=== PATIENT | female | born 1955 | race Caucasian/White ===

== ENCOUNTER 2023-01-25 04:32 | Observation (INO) ==
[2023-01-25 05:33] LABS: Basophils # (auto) 0.05 K/uL (0.00-0.20); Basophils % (auto) 0.4 %; Eosinophils # (auto) 0.06 K/uL (0.00-0.50); Eosinophils % (auto) 0.5 %; Hematocrit (blood only) 41.4 % (37.0-47.0); Hemoglobin 14.7 g/dl (12.0-16.0); Immature Granulocytes # (auto) 0.03 K/uL (0.01-0.20); Immature Granulocytes % (auto) 0.3 %; Mean Corpuscular Hemoglobin 30.7 pg (25.0-34.0); Mean Corpuscular Hgb Conc 35.5 g/dL (32.0-36.0); Mean Corpuscular Volume 86.4 fL (80.0-100.0); Mean Platelet Volume 8.7 fL (9.4-12.4); Monocytes # (auto) 0.77 K/uL (0.11-0.59); Monocytes % (auto) 6.7 %; Neutrophils % (auto) 78.1 %; Platelet Count 233 K/uL (130-400); RDW Coefficient of Variation 12.6 % (11.5-14.5); RDW Standard Deviation 39.8 fL (36.4-46.3); Red Blood Count 4.79 M/uL (4.20-5.40); White Blood Count 11.41 K/ul (4.8-10.8)
[2023-01-25 05:43] LABS: Albumin Globulin Ratio 1.6 (0.9-2); Albumin Level 4.2 gm/dl (3.4-5.0); BUN Creatinine Ratio 35.3 (10-20); Bilirubin,Total 1.3 mg/dl (0.2-1.0); Calcium 9.3 mg/dl (8.6-10.3); Creatinine Clr Calc Pharmacy 66.9 ml/min; Est GFR (African American) 83.3 ml/min; Est GFR (Non-African American) 71.9 ml/min; Globulin 2.6 gm/dl (2.5-4.0); Potassium 4.2 mmol/L (3.5-5.1); Total Protein 6.8 gm/dl (6.0-8.3)
[2023-01-25 06:07] LABS: Influenza A virus by PCR Negative (Neg); Influenza B virus by PCR Negative (Neg); RSV by PCR Negative (Neg); SARS CoV2 RNA(COVID-19) Ceph NEGATIVE (Negative)
[2023-01-25 06:12] LABS: Partial Thromboplastin Ratio 0.9; Partial Thromboplastin Time 26.4 Seconds (21.0-31.0); Prothrombin Time 11.1 Seconds (9.0-12.0)
[2023-01-25 06:29] LABS: Troponin I High Sensitivity 97.9 pg/ml (0-14)
[2023-01-25] MEDS ORDERED: FUROSEMIDE 40 MG/4 ML VIAL IV ONE (06:36)
[2023-01-25] MEDS ORDERED: ASPIRIN CHEW 324 MG PO STA (06:36)
[2023-01-25] MEDS ORDERED: AZITHROMYCIN 500 MG in DEXTROSE 5% 250 ML IV ONE (06:36)
[2023-01-25] MEDS ORDERED: cefTRIAXone SODIUM 2,000 MG/50 ML BAG IV STA (06:36)
--- NOTE | 2023-01-25 06:43 | Emergency Department Note ---
History of Present Illness General Chief complaint: Shortness of Breath/Dyspnea Stated complaint: SOB, CHEST PAIN, NAUSEA SINCE 2 PM YESTERDAY Time Seen by Provider: 01/25/23 06:27 History of Present Illness Maximum Pain Intensity: 4 67-year-old female presents emergency department with 1 day history of substernal chest pressure that was nonradiating that started around 2 PM yesterday after she started initially with a migraine. Patient states that the pain lasted for prolonged period of time it did not radiate to the arm back jaw or neck. Patient denies any cough. Reportedly family had had a cold last week. Patient states some shortness of breath. Patient states dyspnea on exertion. Patient denies hemoptysis denies productive cough at this time. Patient denies leg pain or leg swelling. Patient was concerned due to chest pressure and shortness of breath. There are no other mitigating or alleviating factors. Currently at 6:30 AM on my evaluation the patient states no current chest pain Home Medications Medication Instructions Recorded Confirmed Type ascorbic acid (vitamin C) 500 mg 500 mg PO DAILY #30 tabs 10/11/18 11/05/22 Rx tablet calcium-magnesium 300 mg-300 mg 1 tab PO DAILY 10/11/18 11/05/22 History tablet cholecalciferol (vitamin D3) 50 2,000 units PO DAILY #30 tabs 10/11/18 11/05/22 Rx mcg (2,000 unit) tablet multivitamin (Daily Multi-Vitamin 1 tab PO DAILY 10/11/18 11/05/22 History tablet) hydroxyzine HCl 25 mg tablet 25 mg PO HS PRN itching #90 tabs 10/16/22 11/05/22 Rx tramadol 50 mg tablet 50 mg PO DAILY PRN pain #30 tabs 01/24/23 Rx Allergies Allergy/AdvReac Type Severity Reaction Status Date / Time Benzodiazepines Allergy Mild psychological Verified 11/05/22 14:31 effects NSAIDS (Non-Steroidal Allergy Mild Rash Verified 11/05/22 14:31 Anti-Inflamma Sulfa (Sulfonamide Allergy Mild Rash Verified 11/05/22 14:31 Antibiotics) Past Med/Surg History Medical History H/O Mohs micrographic surgery for skin cancer (~2015) Insomnia Low back pain chronic Mitral regurgitation Mitral valve prolapse Surgical History H/O sinus surgery "cranial incision for sinus infection" - 1972 also May 2020 Hx of colonoscopy Family History Sister Depression Mother Diabetes Hypertension Myocardial infarction Hearing loss Father Kidney disease Cancer Hearing loss Other No family history of allergies No family history of bleeding disorder Denies family history of Ovarian cancer Prostate cancer Heart disease Breast cancer Colorectal cancer Stroke Asthma Social History Smoking Status: Never smoker Second Hand Exposure: No; Do You Dip or Chew Tobacco: No; Hx Alcohol Use: Yes Alcohol Intake Frequency: 2-3 x/Week Hx Substance Use: No Preferred Language: Georgian Communication Ability: Effective Cathode Maker Required: No Beliefs That Will Affect Care: None marital status: Current Living Situation: Spouse current occupational status: employed current occupation: [employer] How many Children do You have: 0 Feels Safe at Home: Yes Childhood Exposure to Second-Hand Smoke: No Diet: regular caffeine: Yes Dental Care, Regularly: Yes Physical Activity Frequency: Daily Physical Activity Frequency Comment: Walking Seatbelt Use: always Sunscreen Use: No Assistive Devices: Glasses Review of Systems A total of 10 systems reviewed and were otherwise negative Respiratory: + dyspnea Cardiovascular: + chest pain Physical Exam Vital Signs Vital Signs - 24 hr 01/25/23 04:36 01/25/23 05:18 01/25/23 05:18 Temperature 36.0 C L Temperature Source Temporal Artery Scan Pulse Rate 109 H Pulse Rate [Right Finger] Pulse Rate from SpO2 Sensor Pulse Rhythm Pulse Rhythm [Right Finger] Pulse Strength [Right Finger] Respiratory Rate 18 Respiratory Effort / Characteristics Non-Labored Spontaneous Respiratory Depth Respiratory Pattern Blood Pressure 94/62 L Blood Pressure [Right Arm] Blood Pressure Mean 72 Blood Pressure Mean [Right Arm] Pulse Oximetry 92 92 Oxygen Delivery Method Room Air Room Air Sepsis Recent Fever Within 48 Hours No Sepsis New/Unexplained Change in Mental Status No Sepsis Action Taken by Nursing No Action Required 01/25/23 05:23 01/25/23 05:18 01/25/23 05:18 Temperature Temperature Source Pulse Rate 92 H 88 88 Pulse Rate [Right Finger] Pulse Rate from SpO2 Sensor 89 Pulse Rhythm Regular Pulse Rhythm [Right Finger] Pulse Strength [Right Finger] Respiratory Rate 16 12 Respiratory Effort / Characteristics Respiratory Depth Respiratory Pattern Blood Pressure Blood Pressure [Right Arm] Blood Pressure Mean Blood Pressure Mean [Right Arm] Pulse Oximetry 92 91 Oxygen Delivery Method Room Air Sepsis Recent Fever Within 48 Hours Sepsis New/Unexplained Change in Mental Status Sepsis Action Taken by Nursing 01/25/23 05:20 01/25/23 05:30 01/25/23 05:40 Temperature Temperature Source Pulse Rate 86 91 H 91 H Pulse Rate [Right Finger] Pulse Rate from SpO2 Sensor 87 91 H 91 H Pulse Rhythm Pulse Rhythm [Right Finger] Pulse Strength [Right Finger] Respiratory Rate 12 20 18 Respiratory Effort / Characteristics Respiratory Depth Respiratory Pattern Blood Pressure Blood Pressure [Right Arm] Blood Pressure Mean Blood Pressure Mean [Right Arm] Pulse Oximetry 91 89 L 91 Oxygen Delivery Method Sepsis Recent Fever Within 48 Hours Sepsis New/Unexplained Change in Mental Status Sepsis Action Taken by Nursing 01/25/23 05:50 01/25/23 06:07 01/25/23 07:20 Temperature 36.8 C Temperature Source Oral Pulse Rate 90 Pulse Rate [Right Finger] 90 92 H Pulse Rate from SpO2 Sensor 92 H Pulse Rhythm Pulse Rhythm [Right Finger] Regular Pulse Strength [Right Finger] Normal Respiratory Rate 26 H 15 18 Respiratory Effort / Characteristics Non-Labored Spontaneous Respiratory Depth Normal Respiratory Pattern Regular Blood Pressure 97/70 L Blood Pressure [Right Arm] 97/70 L 95/75 L Blood Pressure Mean 79 Blood Pressure Mean [Right Arm] 79 81 Pulse Oximetry 88 L 90 93 Oxygen Delivery Method Room Air Sepsis Recent Fever Within 48 Hours Sepsis New/Unexplained Change in Mental Status Sepsis Action Taken by Nursing GENERAL: Patient is awake alert in no acute distress patient is resting comfortably and showing no signs of anxiety EYES: The conjunctivae are clear. The pupils are round and reactive. EARS, NOSE, MOUTH AND THROAT: The nose is without any evidence of any deformity. Mucous membranes are moist. Tongue is midline. NECK: The neck is nontender and supple. RESPIRATORY: Normal respiratory effort is noted there is no evidence of wheezing rhonchi or rales CARDIOVASCULAR: Regular rate and rhythm noted there no murmurs rubs or gallops normal S1 normal S2. GASTROINTESTINAL: The abdomen is soft. Abdomen is nontender. PELVIS: The Pelvis is stable. No tenderness to palpation is noted. BACK: No midline tenderness or or step-off noted range of motion in flexion exte nsion as well as rotation no signs of muscle spasm noted MUSCULOSKELETAL/EXTREMITIES: There is no evidence of gross deformity full range of motion is noted in the hips and shoulders. SKIN: There is no obvious evidence of any rash. There are no petechiae, pallor or cyanosis noted. NEUROLOGIC: Patient is awake alert and oriented x3 strength is symmetric patellar reflexes are 2+ bilaterally Course Reevaluation(s) Reevaluation #1: Patient was started on aspirin, Lasix, antibiotics, oxygen. Patient has no current chest pain or significant shortness of breath Time: 07:30 Consultations Consultation #1: Case was discussed with the [facility]ist for admission Time: 07:30 Administered Medications Azithromycin 500 mg/ Dextrose 255 mls @ 125 mls/hr IV ONE ONE Stop: 01/25/23 08:38 Last Admin: 01/25/23 07:49 Dose: 125 mls/hr Documented By: MEENU Discontinued Medications Aspirin (Aspirin Chew 324 Mg) 324 mg PO NOW STA Stop: 01/25/23 06:37 Last Admin: 01/25/23 07:01 Dose: 324 mg Documented By: EDISON Furosemide (Furosemide 40 Mg/4 Ml Vial) 40 mg IV ONE ONE Stop: 01/25/23 06:37 Last Admin: 01/25/23 07:02 Dose: 40 mg Documented By: EDISON Ceftriaxone Sodium (Rocephin) 2,000 mg in 50 mls @ 100 mls/hr IV NOW STA Stop: 01/25/23 07:05 Last Infusion: 01/25/23 07:58 Dose: 0 mls/hr Documented By: Admin: 01/25/23 07:00 Dose: 100 mls/hr Documented By: EDISON Critical Care Time Critical Care Time: Yes Total Critical Care Time: 35 I have personally spent greater than 35 minutes of critical care time in the direct management of this patient. This includes bedside care, interpretation of diagnostic studies, and testing, discussion with consultants, patient, and family members, and other required patient management activities. These minutes are in excess of all separately billable procedures. Medical Decision Making Medical Records Attestation: I reviewed the patient's medical records. Home Medications Current Medication List: was personally reviewed by me Laboratory Data Attestation: I reviewed the patient's lab results. Lab results interpreted by me patient has an elevated troponin, mildly elevated white blood cell count 10/27/23 05:13 01/25/23 05:13 Lab Results 01/25/23 01/25/23 01/25/23 Range/Units 05:13 05:13 05:13 WBC 11.41 H (4.8-10.8) K/ul RBC 4.79 (4.20-5.40) M/uL Hgb 14.7 (12.0-16.0) g/dl Hct 41.4 (37.0-47.0) % MCV 86.4 (80.0-100.0) fL MCH 30.7 (25.0-34.0) pg MCHC 35.5 (32.0-36.0) g/dL RDW Std Deviation 39.8 (36.4-46.3) fL RDW Coeff of [place] 12.6 (11.5-14.5) % Plt Count 233 (130-400) K/uL MPV 8.7 L (9.4-12.4) fL Immature Gran % (Auto) 0.3 % Neut % (Auto) 78.1 % Lymph % (Auto) 14.0 % [place] % (Auto) 6.7 % Eos % (Auto) 0.5 % Baso % (Auto) 0.4 % Neut # (Auto) 8.90 H (1.40-6.50) K/uL Lymph # (Auto) 1.60 (1.20-3.40) K/uL [place] # (Auto) 0.77 H (0.11-0.59) K/uL Eos # (Auto) 0.06 (0.00-0.50) K/uL Baso # (Auto) 0.05 (0.00-0.20) K/uL Immature Gran # (Auto) 0.03 (0.01-0.20) K/uL PT (9.0-12.0) Seconds INR (0.9-1.1) APTT (21.0-31.0) Seconds PTT Ratio Sodium 135 L (136-145) mmol/L Potassium 4.2 (3.5-5.1) mmol/L Chloride 104 (98-107) mmol/L Carbon Dioxide 22 (21-32) mmol/L Anion Gap 9 (3-11) BUN 30 H (6-23) mg/dl Creatinine 0.85 (0.6-1.2) mg/dl Est Cr Clr Drug Dosing 66.9 ml/min Est GFR ( Amer) 83.3 ml/min Est GFR (Non-Af Amer) 71.9 ml/min BUN/Creatinine Ratio 35.3 H (10-20) Glucose 149 H (70-99(Fasting)) mg/dl Calcium 9.3 (8.6-10.3) mg/dl Magnesium (1.7-2.4) mg/dl Total Bilirubin 1.3 H (0.2-1.0) mg/dl AST 23 (13-39) U/L ALT 23 (7-52) U/L Alkaline Phosphatase 75 (34-104) U/L Troponin I High Sens 97.9 H* (0-14) pg/ml Total Protein 6.8 (6.0-8.3) gm/dl Albumin 4.2 (3.4-5.0) gm/dl Globulin 2.6 (2.5-4.0) gm/dl Albumin/Globulin Ratio 1.6 (0.9-2) SARS-CoV-2 (PCR) NEGATIVE (Negative) Influenza Type A (PCR) Negative (Neg) Influenza Type B (PCR) Negative (Neg) RSV (RT-PCR) Negative (Neg) 01/25/23 01/25/23 Range/Units 05:13 07:36 WBC (4.8-10.8) K/ul RBC (4.20-5.40) M/uL Hgb (12.0-16.0) g/dl Hct (37.0-47.0) % MCV (80.0-100.0) fL MCH (25.0-34.0) pg MCHC (32.0-36.0) g/dL RDW Std Deviation (36.4-46.3) fL RDW Coeff of [place] (11.5-14.5) % Plt Count (130-400) K/uL MPV (9.4-12.4) fL Immature Gran % (Auto) % Neut % (Auto) % Lymph % (Auto) % [place] % (Auto) % Eos % (Auto) % Baso % (Auto) % Neut # (Auto) (1.40-6.50) K/uL Lymph # (Auto) (1.20-3.40) K/uL [place] # (Auto) (0.11-0.59) K/uL Eos # (Auto) (0.00-0.50) K/uL Baso # (Auto) (0.00-0.20) K/uL Immature Gran # (Auto) (0.01-0.20) K/uL PT 11.1 (9.0-12.0) Seconds INR 1.0 (0.9-1.1) APTT 26.4 (21.0-31.0) Seconds PTT Ratio 0.9 Sodium (136-145) mmol/L Potassium (3.5-5.1) mmol/L Chloride (98-107) mmol/L Carbon Dioxide (21-32) mmol/L Anion Gap (3-11) BUN (6-23) mg/dl Creatinine (0.6-1.2) mg/dl Est Cr Clr Drug Dosing ml/min Est GFR ( Amer) ml/min Est GFR (Non-Af Amer) ml/min BUN/Creatinine Ratio (10-20) Glucose (70-99(Fasting)) mg/dl Calcium (8.6-10.3) mg/dl Magnesium 1.9 (1.7-2.4) mg/dl Total Bilirubin (0.2-1.0) mg/dl AST (13-39) U/L ALT (7-52) U/L Alkaline Phosphatase (34-104) U/L Troponin I High Sens (0-14) pg/ml Total Protein (6.0-8.3) gm/dl Albumin (3.4-5.0) gm/dl Globulin (2.5-4.0) gm/dl Albumin/Globulin Ratio (0.9-2) SARS-CoV-2 (PCR) (Negative) Influenza Type A (PCR) (Neg) Influenza Type B (PCR) (Neg) RSV (RT-PCR) (Neg) Imaging Data Attestation: I personally reviewed and interpreted this imaging study as follows: My Impression: Chest x-ray interpreted by me CHF versus right lower lobe infiltrate Radiologist's Impression: Chest X-Ray 01/25/23 04:53 XR chest 1V portable CLINICAL HISTORY: Dyspnea. COMPARISON STUDY: No previous studies for comparison. FINDINGS: There is no pneumothorax. There are small bilateral pleural effusions. Moderate interstitial thickening is present. There are hazy bibasilar opacities. Cardiac size is at normal. IMPRESSION: Interstitial thickening consistent with pulmonary edema. Small bilateral pleural effusions with hazy bibasilar opacities. Radiographic follow- up to ensure resolution is recommended. ACT 112: Negative or not required by law. Electronically signed by: [place] Romeo M.D. 01/25/2023 6:56 AM ECG Data Attestation: I personally reviewed and interpreted this ECG as follows: Additional Comments: EKG interpreted by me normal sinus rhythm nonspecific ST-T change no obvious ST segment elevation or depression rate of 96, normal axis normal intervals Telemetry the patient has a rate of 96 as interpreted by me MDM Narrative Medical decision making differential diagnosis includes angina, unstable angina, acute coronary syndrome, acute MN, CHF, pneumonia, COVID, upper respiratory tract infection, anemia, cardiac dysrhythmia Patient had a cardiac evaluation started prior to my arrival to the patient's room. Patient has an elevated troponin and nonspecific ST-T change EKG and a picture of CHF on chest x-ray. Patient was started on aspirin, Lasix and empiric antibiotics. Blood cultures were obtained. A BNP was added. Patient is hypoxic has had 88% room air pulse ox but is in no respiratory distress and was started on 2 L of oxygen. Patient will be admitted for further evaluation of ACS and CHF I did review a primary care visit of September 2022 regarding the patient having stable MVP and insomnia Heart score is a 5 Patient currently has no chest pain, the case was discussed with the [facility] hospitalist for admission Impression & Plan Acute non-ST elevation myocardial infarction (NSTEMI), CHF (congestive heart failure), Hypoxia Discharge Plan Visit Data Chief Complaint: Shortness of Breath/Dyspnea Stated Complaint: SOB, CHEST PAIN, NAUSEA SINCE 2 PM YESTERDAY ED Provider: Chao Middleton Discharge Problem: Acute non-ST elevation myocardial infarction (NSTEMI), CHF (congestive heart failure), Hypoxia Patient Disposition: Admitted As Inpatient Forms Stand Alone Forms: [facility] Prescriptions Prescriptions: No Action hydroxyzine HCl 25 mg tablet 25 mg PO HS PRN (Reason: itching) Qty: 90 0RF tramadol 50 mg tablet 50 mg PO DAILY PRN (Reason: pain) Qty: 30 0RF Rx Instructions: PDMP searched, okay to fill calcium-magnesium 300-300 mg tablet 1 tab PO DAILY multivitamin [Daily Multi-Vitamin] tablet 1 tab PO DAILY ascorbic acid (vitamin C) 500 mg tablet 500 mg PO DAILY Qty: 30 0RF cholecalciferol (vitamin D3) 2,000 unit tablet 2,000 units PO DAILY Qty: 30 0RF Referrals Referrals: Linn Osuna MD [Primary Care Provider] -
--- NOTE | 2023-01-25 06:58 | XRay Report ---
XR chest 1V portable CLINICAL HISTORY: Dyspnea. COMPARISON STUDY: No previous studies for comparison. FINDINGS: There is no pneumothorax. There are small bilateral pleural effusions. Moderate interstitia l thickening is present. There are hazy bibasilar opacities. Cardiac size is at normal. IMPRESSION: Interstitial thickening consistent with pulmonary edema. Small bilateral pleural effusio ns with hazy bibasilar opacities. Radiographic follow-up to ensure resolution is recommended. ACT 112: Negative or not required by law. Electronically signed by: [place] Romeo M.D. 01/25/2023 6:56 AM
--- NOTE | 2023-01-25 07:40 | History & Physical Report ---
Date of Service January 25, 2023 Assessment & Plan (1) Chest pain: Plan: Patient presents with unstable angina, acute heart failure, unknown EF at the time of admission but previously with preserved EF and moderate MR Troponin elevated at 97 on arrival and 2 hours later up to 127, BNP elevated at 733 Chest x-ray with pulmonary edema and small bilateral pleural effusions ECG with T wave changes in leads III and aVF -Admit to PCU -Trend serial troponin, check echocardiogram given MR and significant murmur on examination -Consult cardiology for further evaluation -Will likely need ischemic evaluation after heart failure exacerbation treated (2) Acute non-ST elevation myocardial infarction (NSTEMI): Plan: Troponin elevation as above with some nonspecific T wave changes in inferior leads on ECG along with chest pain with exertion Start baby aspirin daily Check lipid panel, consider statin Will need ischemic evaluation in the future (3) CHF (congestive heart failure): Plan: With elevated BNP, pulmonary edema and pleural effusions, crackles, orthopnea, dyspnea on exertion With a history of moderate MR on echo from 2021, here with 3/6 holosystolic murmur With recent viral illness-could have viral cardiomyopathy Check respiratory viral panel bio fire Check echocardiogram Consult cardiology Received 1 dose of IV Lasix and had some hypotension into the 80s systolic-hold further Lasix at this time Supplemental O2 as needed keep pulse ox greater than 92% Keep electrolytes replete-give 1 g IV magnesium (4) Hypoxia: Plan: Secondary to CHF Supplemental O2 and wean off as able to (5) Mitral regurgitation: Plan: As noted above Checking echocardiogram (6) Insomnia: Plan: Continue hydroxyzine as needed for sleep and tramadol as needed for chronic lower back pain Plan Disposition-admit to PCU Full code History of Present Illness Chief Complaint: Chest pain, shortness of breath Primary Care Provider: Linn Osuna MD This patient is a 67-year-old female with a history of mitral valve prolapse and regurgitation, and insomnia who presents to the ER with substernal chest pain and shortness of breath that started yesterday afternoon. She had cold symptoms last week to include sinus congestion and mild cough, but no fevers or chills and has since recovered. Her had a worse cold than she did. She reports intermittent substernal chest pressure and associated dyspnea anytime she walked around that was relieved with rest. No weight gain or leg swelling, no abd bloating.She does report putting salt on a lot of her food ever since she lost her sense of taste with having COVID a couple years ago. She reports her chest pain was also coming on all through the night especially with lying flat, at worst was a 6/10. Currently is present at a 1/10 but feeling a little better since receiving IV lasix in ER. In the ER, pulse ox 88% on room air and she was placed on 2 L nasal cannula. Her troponin was elevated at 97. ECG showed T wave flattening in aVF and some T wave inversion in 3-nonspecific T wave abnormality in inferior leads. Chest x- ray was clearly consistent with pulmonary edema and small bilateral pleural effusions with hazy bibasilar opacities. She was given IV Lasix as well as antibiotics in case of community-acquired pneumonia. She will be admitted for further cardiac evaluation for NSTEMI, CHF, less likely pneumonia. Allergies Allergy/AdvReac Type Severity Reaction Status Date / Time Benzodiazepines Allergy Mild psychological Verified 11/05/22 14:31 effects NSAIDS (Non-Steroidal Allergy Mild Rash Verified 11/05/22 14:31 Anti-Inflamma Sulfa (Sulfonamide Allergy Mild Rash Verified 11/05/22 14:31 Antibiotics) Home Medications Medication Instructions Recorded Confirmed Type ascorbic acid (vitamin C) 500 mg 500 mg PO DAILY #30 tabs 10/11/18 01/25/23 Rx tablet calcium-magnesium 300 mg-300 mg 1 tab PO DAILY 10/11/18 01/25/23 History tablet cholecalciferol (vitamin D3) 50 2,000 units PO DAILY #30 tabs 10/11/18 01/25/23 Rx mcg (2,000 unit) tablet multivitamin (Daily Multi-Vitamin 1 tab PO DAILY 10/11/18 01/25/23 History tablet) hydroxyzine HCl 25 mg tablet 25 mg PO HS PRN itching #90 tabs 10/16/22 01/25/23 Rx tramadol 50 mg tablet 50 mg PO DAILY PRN pain #30 tabs 01/24/23 01/25/23 Rx aspirin 81 mg tablet,delayed 81 mg PO QAM #30 tabs 01/25/23 Rx release fluticasone propionate 50 1 spray intranasal DAILY 01/25/23 01/25/23 History mcg/actuation nasal spray,suspension Past Med/Surg History Medical History H/O Mohs micrographic surgery for skin cancer (~2016) Insomnia Low back pain chronic Mitral regurgitation Mitral valve prolapse Surgical History H/O sinus surgery "cranial incision for sinus infection" - 1972 also May 2020 Hx of colonoscopy Family History Sister Depression Mother Diabetes Hypertension Myocardial infarction Hearing loss Father Kidney disease Cancer Hearing loss Other No family history of allergies No family history of bleeding disorder Denies family history of Ovarian cancer Prostate cancer Heart disease Breast cancer Colorectal cancer Stroke Asthma Social History Smoking Status: Never smoker Second Hand Exposure: No; Do You Dip or Chew Tobacco: No; Hx Alcohol Use: No Hx Substance Use: No Preferred Language: Ecuadorean Communication Ability: Effective Engine Hostler Required: No Beliefs That Will Affect Care: None marital status: Current Living Situation: Family current occupational status: employed current occupation: [employer] How many Children do You have: 0 Feels Safe at Home: Yes Safety Concerns: Feels Safe At This Time Childhood Exposure to Second-Hand Smoke: No Diet: regular caffeine: Yes Dental Care, Regularly: Yes Physical Activity Frequency: Daily Physical Activity Frequency Comment: Walking Seatbelt Use: always Sunscreen Use: No Assistive Devices: None Review of Systems Review of Systems: All systems reviewed & are unremarkable except as noted in HPI & below Physical Exam Constitutional: WD/WN, vitals as above Eyes: PERRL, conjunctivae normal, anicteric sclerae ENMT: external ear and nose normal, oropharynx normal Neck: trachea midline, no thyromegaly Respiratory: normal respiratory effort; no cough Auscultation: + crackles (Bibasilar); no wheezes Cardiovascular: Rate/Rhythm: regular rate and regular rhythm Heart Sounds: + murmur (3/6 holosystolic murmur heard best at apex and radiating to axilla) Vessels: + JVD and dorsalis pedis pulses present Extremities: no edema Chest (Breasts): Chest: normal inspection of chest Gastrointestinal (Abdomen): normal bowel sounds, soft, nontender, no hepatosplenomegaly Musculoskeletal: Extremities: extremities normal to inspection; no cyanosis and no clubbing Skin: no rashes, warm and dry Neurologic: moves all extremities and awake; no focal motor deficits Psychiatric: A+Ox3, euthymic affect Lymphatic: no lymphedema Results & Data Results & Data Vital Signs (Past 12 Hours) Vital Signs Temp Pulse Pulse Resp BP BP Pulse Ox 01/25/23 07:20 92 H 18 95/75 L 93 01/25/23 06:07 36.8 C 90 15 97/70 L 90 01/25/23 05:50 90 26 H 97/70 L 88 L 01/25/23 05:40 91 H 18 91 01/25/23 05:30 91 H 20 89 L 01/25/23 05:20 86 12 91 01/25/23 05:18 88 12 91 01/25/23 05:18 88 01/25/23 05:23 92 H 16 92 01/25/23 05:18 92 01/25/23 04:36 36.0 C L 109 H 18 94/62 L 92 O2 Del Method 01/25/23 07:20 01/25/23 06:07 Room Air 01/25/23 05:50 01/25/23 05:40 01/25/23 05:30 01/25/23 05:20 01/25/23 05:18 01/25/23 05:18 01/25/23 05:23 Room Air 01/25/23 05:18 Room Air 01/25/23 04:36 Room Air Laboratory Results CBC, PT/INR, PTT, CMP, troponin reviewed COVID/influenza/RSV reviewed and negative Diagnostic Findings Chest x-ray image personally reviewed by me and consistent with pulmonary edema, small bilateral pleural effusions-CHF ECG Additional Comments: As per HPI Code Status & VTE Plan Code Status Full code VTE Prophylaxis Plan VTE Prophylaxis will be ordered: Yes PG Care Time/CCT Total # of Minutes Spent Total Time Spent with Patient: Total time spent is greater than 50% in coordination of care (as documented) at patient's floor/unit and/or counseling patient: Coding Level of Care Code 84534 INT INP/OBS CARE 3/75MIN Diagnoses Chest pain R07.9 Acute non-ST elevation myocardial infarction (NSTEMI) I21.4 CHF (congestive heart failure) I50.9 Hypoxia R09.02 Mitral regurgitation I34.0 Cardiac valve disease etiology: nonrheumatic Insomnia G47.00 (5) Mitral regurgitation Cardiac valve disease etiology: nonrheumatic Qualified Code(s): I34.0 - Nonrheumatic mitral (valve) insufficiency
[2023-01-25 08:09] LABS: Magnesium 1.9 mg/dl (1.7-2.4)
[2023-01-25 08:13] LABS: Appearance Urine Cloudy (Clear); Bacteria Urine Automated Negative (Negative); Bilirubin Urine Negative (Negative); Blood Urine Negative (Negative); Color Urine Yellow; Glucose Urine UA Negative (Negative); Ketones Urine Negative (Negative); Leukocyte Esterase Urine Negative (Negative); Nitrite Urine Negative (Negative); Protein Urine Negative (Negative); RBC Urine Automated 0-4 /hpf (0-4); Specific Gravity Urine 1.017 (1.000-1.030); Urobilinogen Urine Negative (Negative)
[2023-01-25 08:18] LABS: Troponin I High Sensitivity 122.2 pg/ml (0-14)
[2023-01-25 08:26] LABS: Thyroid Stimulating Hormone 4.626 uIu/ml (0.300-4.500)
[2023-01-25 09:03] LABS: T4 Free Thyroxine 1.02 ng/dl (0.61-1.60)
[2023-01-25] MEDS ORDERED: MAGNESIUM SULFATE / D5W 1 GM/100 ML BAG IV ONE (09:08)
[2023-01-25] MEDS ORDERED: MoRPHine SULFATE 2 MG/ML CARP IV PRN (11:49)
[2023-01-25] MEDS ORDERED: NITROGLYCERIN SL 0.4 MG/TAB TAB SL PRN (11:49)
[2023-01-25] MEDS ORDERED: traMADol HCL 50 MG TABLET PO PRN (11:49)
[2023-01-25] MEDS ORDERED: POLYETHYLENE (MIRALAX) 17 GM PACK PO PRN (11:49)
[2023-01-25] MEDS ORDERED: ACETAMINOPHEN 325 MG TAB PO PRN (11:49)
[2023-01-25] MEDS ORDERED: hydrOXYzine HCl 25 MG TAB PO PRN (11:49)
[2023-01-25] MEDS ORDERED: ONDANSETRON INJ 2 MG/ML 2 ML VIAL IV PRN (11:49)
[2023-01-25 12:27] LABS: Adenovirus PCR Not Detected (NotDetected); Bordetella parapertussis PCR Not Detected (NotDetected); Bordetella pertussis PCR Not Detected (NotDetected); Chlamydia pneumoniae PCR Not Detected (NotDetected); Coronavirus 229E PCR Not Detected (NotDetected); Coronavirus CoV-2 (COVID19)PCR Not Detected (NotDetected); Coronavirus HKU1 PCR Not Detected (NotDetected); Coronavirus NL63 PCR Not Detected (NotDetected); Coronavirus OC43PCR Not Detected (NotDetected); Human Metapneumovirus PCR Not Detected (NotDetected); Influenza A PCR Not Detected (NotDetected); Influenza B PCR Not Detected (NotDetected); Mycoplasma pneumoniae PCR Not Detected (NotDetected); Parainfluenza Virus 1 PCR Not Detected (NotDetected); Parainfluenza Virus 2 PCR Not Detected (NotDetected); Parainfluenza Virus 3 PCR Not Detected (NotDetected); Parainfluenza Virus 4 PCR Not Detected (NotDetected); Respiratory Syncytial VirusPCR Not Detected (NotDetected); Rhinovirus/Enterovirus PCR Not Detected (NotDetected)
[2023-01-25] MEDS ORDERED: OPTIRAY 320 500ml IV ONE (12:47)
--- NOTE | 2023-01-25 13:02 | CT Scan Report ---
CT ANGIOGRAPHY OF THE CHEST, PULMONARY EMBOLUS PROTOCOL CLINICAL HISTORY: Dyspnea. COMPARISON STUDY: Chest radiograph performed earlier today. TECHNIQUE: Following IV administration of 111 mL of Optiray, helical axial images of the chest were o btained utilizing the pulmonary embolus protocol. Maximal intensity projections and sagittal and cor onal reformats were viewed on an independent 3D workstation. IV contrast was administered without co mplication. Automated exposure control was utilized for the study. A dose lowering technique was ut ilized adhering to the principles of ALARA. CT DOSE: 746.73 mGy.cm FINDINGS: No pulmonary emboli are identified. There is moderate cardiomegaly. No pericardial effusio n is present. Calcification within or adjacent to the mitral valve is noted. There is no pneumothorax . There are small bilateral pleural effusions. Interlobular septal thickening is noted. This has prog ressed since chest radiograph performed earlier today. Scattered alveolar opacities within the lungs are present. Central airways are patent. A water attenuation lateral segment hepatic lesion favors a cyst. IMPRESSION: 1. No pulmonary emboli identified. 2. Progression of interstitial and alveolar pulmonary edema since chest radiograph performed earlier today. Small bilateral pleural effusions. 3. Moderate cardiomegaly. ACT 112: Negative or not required by law. Electronically signed by: Chico Romeo M.D. 01/25/2023 1:01 PM
--- NOTE | 2023-01-25 15:19 | Discharge Summary ---
Discharge Summary Date of Service January 25, 2023 Notes For Next Care Provider Transferred urgently to [facility] for CT surgery evaluation for acute MR Admission HPI Per Admitting Provider This patient is a 67-year-old female with a history of mitral valve prolapse and regurgitation, and insomnia who presents to the ER with substernal chest pain and shortness of breath that started yesterday afternoon. She had cold symptoms last week to include sinus congestion and mild cough, but no fevers or chills and has since recovered. Her had a worse cold than she did. She reports intermittent substernal chest pressure and associated dyspnea anytime she walked around that was relieved with rest. No weight gain or leg swelling, no abd bloating.She does report putting salt on a lot of her food ever since she lost her sense of taste with having COVID a couple years ago. She reports her chest pain was also coming on all through the night especially with lying flat, at worst was a 6/10. Currently is present at a 1/10 but feeling a little better since receiving IV lasix in ER. In the ER, pulse ox 88% on room air and she was placed on 2 L nasal cannula. Her troponin was elevated at 97. ECG showed T wave flattening in aVF and some T wave inversion in 3-nonspecific T wave abnormality in inferior leads. Chest x- ray was clearly consistent with pulmonary edema and small bilateral pleural effusions with hazy bibasilar opacities. She was given IV Lasix as well as antibiotics in case of community-acquired pneumonia. She will be admitted for further cardiac evaluation for NSTEMI, CHF, less likely pneumonia. Principal Dx & Hospital Course #1 = Principal Diagnosis (1) CHF (congestive heart failure): With elevated BNP, pulmonary edema and pleural effusions, crackles, orthopnea, dyspnea on exertion With a history of moderate MR on echo from 2021, here with 3/6 holosystolic murmur With recent viral illness-could have viral cardiomyopathy but viral respiratory panel checked and negative. Also with acute MR likely cause as below Echocardiogram here with preserved EF, severe pulmonary hypertension, and severe MR likely acute Consult cardiology greatly appreciated-plan for transfer to cardiology at [facility] for CT surgery evaluation Received 1 dose of IV Lasix and had some hypotension into the 80s systolic-hold further Lasix at this time Supplemental O2 as needed keep pulse ox greater than 92% Keep electrolytes replete-gave 1 g IV magnesium Keep n.p.o. (2) Chest pain: Patient presents with unstable angina, acute heart failure, unknown EF at the time of admission but previously with preserved EF and moderate MR Troponin elevated at 97 on arrival and 2 hours later up to 122, then stable at 115, BNP elevated at 733 Chest x-ray with pulmonary edema and small bilateral pleural effusions ECG with T wave changes in leads III and aVF Echocardiogram with severe MR as above, possible acute MR Transferring to [facility] (3) Mitral regurgitation: As noted above (4) Acute non-ST elevation myocardial infarction (NSTEMI): Troponin elevation as above with some nonspecific T wave changes in inferior leads on ECG along with chest pain with exertion Start baby aspirin daily Check lipid panel, consider statin Will need ischemic evaluation in the future (5) Hypoxia: Secondary to CHF Supplemental O2 and wean off as able to (6) Insomnia: Continue hydroxyzine as needed for sleep and tramadol as needed for chronic lower back pain Plan Disposition-Transfer to [facility] for CT surgery evaluation for likely acute MR Full code Discharge Exam Constitutional WD/WN, vitals as above Eyes PERRL, conjunctivae normal, anicteric sclerae ENMT external ear and nose normal, oropharynx normal Neck trachea midline, no thyromegaly Respiratory normal respiratory effort; no cough Auscultation: + crackles (Bibasilar); no wheezes Cardiovascular Rate/Rhythm: regular rate and regular rhythm Heart Sounds: + murmur (3/6 holosystolic murmur heard best at apex and radiating to axilla) Vessels: + JVD and dorsalis pedis pulses present Extremities: no edema Chest (Breasts) Chest: normal inspection of chest Gastrointestinal (Abdomen) normal bowel sounds, soft, nontender, no hepatosplenomegaly Musculoskeletal Extremities: extremities normal to inspection; no cyanosis and no clubbing Skin no rashes, warm and dry Neurologic moves all extremities and awake; no focal motor deficits Psychiatric A+Ox3, euthymic affect Lymphatic no lymphedema Updated Medication List Medication Instructions Recorded Confirmed Type ascorbic acid (vitamin C) 500 mg 500 mg PO DAILY #30 tabs 10/11/18 01/25/23 Rx tablet calcium-magnesium 300 mg-300 mg 1 tab PO DAILY 10/11/18 01/25/23 History tablet cholecalciferol (vitamin D3) 50 2,000 units PO DAILY #30 tabs 10/11/18 01/25/23 Rx mcg (2,000 unit) tablet multivitamin (Daily Multi-Vitamin 1 tab PO DAILY 10/11/18 01/25/23 History tablet) hydroxyzine HCl 25 mg tablet 25 mg PO HS PRN itching #90 tabs 10/16/22 01/25/23 Rx tramadol 50 mg tablet 50 mg PO DAILY PRN pain #30 tabs 01/24/23 01/25/23 Rx aspirin 81 mg tablet,delayed 81 mg PO QAM #30 tabs 01/25/23 Rx release fluticasone propionate 50 1 spray intranasal DAILY 01/25/23 01/25/23 History mcg/actuation nasal spray,suspension Hospital Stay Data Consultations 01/25/23 07:22 ED Decision to Admit Stat 01/25/23 11:02 Consult Cardiology Routine Diagnostic Imagining Performed 01/25/23 12:18 CT angio chest PE protocol Stat Pending Results Patient Have Any Pending Studies at Discharge: Yes (Blood cultures) Discharge Instructions Given to Patient (Per Discharging Provider) transferred urgently to [facility] Total Time Total Time Spent Total Time Spent (In Minutes): 90 minutes Total Time Includes: Examination of the Patient, Discharge Planning, Medication Reconciliation and Communication With Other Providers (Cardiology) Coding Level of Care Code 06062 INP/OBS DISCH >30 MIN Diagnoses CHF (congestive heart failure) I50.9 Chest pain R07.9 Mitral regurgitation I34.0 Cardiac valve disease etiology: nonrheumatic Acute non-ST elevation myocardial infarction (NSTEMI) I21.4 Hypoxia R09.02 Insomnia G47.00
--- NOTE | 2023-01-25 15:30 | Cardiology Consultation ---
Date of Consultation January 25, 2023 Assessment & Plan (1) Acute mitral regurgitation: (2) Chest pain: (3) Mitral valve prolapse: (4) Pulmonary hypertension: (5) Tricuspid regurgitation: (6) Hypoxia: Plan ASSESSMENT/PLAN: 1. Acute mitral regurgitation: Presentation concerning for acute severe mitral regurgitation. Hypoxic with mild tachycardia and mild hypotension with Rales on exam but otherwise does not appear to be hypervolemic intravascularly. Labs suggest azotemia and she has not responded to Lasix 40 mg IV x1. Echo suggests severe mitral regurgitation with mitral valve prolapse and possible flail/partially flail posterior mitral leaflet. Most recent blood pressure low normal. Recommend urgent transfer to [facility] to be evaluated for mitral valve corrective surgery. Contacted Dr. Pittman of CT surgery at [facility] and also discussed with Dr. Hoffman of cardiology at [facility]. They have agreed to accept her in transfer. Will not delay transfer with transesophageal echo or cardiac catheterization. 2. Mitral valve prolapse: Myxomatous mitral valve. Has done well for years until acute change on 01/24/2023 and now concern for severe mitral regurgitation as above. 3. Elevated troponin: Has ongoing chest discomfort but no wall motion abnorma lities on echo to suggest MA and only low-level troponin elevation, which is likely related to her mitral valve process. No PE on CT scan. Transfer as above. 4. Pulmonary hypertension: Severe pulmonary hypertension suggested on preliminary echo review. Formal review to follow. Likely related to her mitral valve process. CTA of the chest with reportedly no pulmonary embolism, but rather worsening pulmonary edema from chest x-ray earlier in the day. CT surgery to evaluate for mitral valve corrective surgery. 5. Tricuspid regurgitation: Appeared significant on preliminary echo review. Anticipate transesophageal echo as well at [facility] and may require surgical repair. 6. Hypoxia: Likely due to mitral regurgitation. She does not appear hypervolemic on exam and has not responded to Lasix. Oxygen saturation is acceptable with supplemental oxygen thus far. 7. Disposition: Patient care discussed with CT surgery and cardiology at [facility]. Appreciate their assistance. Patient care discussed with Dr. James of the primary hospitalist service. Recommend transfer to [facility] for CT surgery evaluation. Recommendations discussed in detail with patient at the bedside. Offered to call her but she states that she has already updated him. Any questions were answered to the best of my ability. Highly complex medical issues. 55 minutes of critical care time spent managing patient, coordinating care, discussing with multiple providers as noted above, reviewing records, and completing documentation. Thank you for allowing me to participate in the care of your patient. Please c all for any other questions or concerns. Sincerely, Issac William M.D. History of Present Illness Reason for Consultation: CHF, elevated troponin, chest pain Requesting Physician: Alyssa James MD Attending Physician: Alyssa James MD History of Present Illness Mrs. Gold is a very pleasant 67-year-old female with a history significant for mitral valve prolapse with nonsevere regurgitation. She formally has been seen by Dr. Jones in the cardiology office on 07/28/2021. Her last echo was on 06/27/2021 which described normal LV systolic function and mild to moderate mitral regurgitation. She presented to the emergency department and was admitted on 01/25/2023 with chest pain, shortness of breath and hypoxia. She was hypotensive on presentation with systolic pressures in the 80s to 90s and heart rates in the 90s to low 100s for the most part. She has been at her baseline other than some mild URI symptoms a few weeks ago after her had similar symptoms. She recently went to the beach and did well there from a cardiovascular standpoint. Then acutely at approximately 2 PM on 01/24/2023, she developed chest pain and shortness of breath. It is a substernal chest discomfort and mostly dyspnea on exertion however symptoms would improve if she sat down. Symptoms persisted throughout the night however including orthopnea. She has had lightheadedness, specifically on exertion up stairs. She has not noted any weight gain nor edema. She checks her blood pressure occasionally at home and her heart rate is typically in the 60s or 70s. She has not checked her blood pressure or heart rate in approximately 1 or 2 weeks. When she arrived, she was hypoxic with oxygen saturation in the upper 80s per report on room air. She was placed on nasal cannula and her oxygen saturation on 2 L has been low 90s percent. She was given Lasix 40 mg IV x1 in the emergency department. She has not noted any significant urine output. Chest pain has been minimal and persistent. Her high-sensitivity troponin was 97 on presentation, trended to 122 and then trended downward at 115, despite ongoing discomfort. She denies melena, hematochezia, hematuria, or other bleeding. Review of systems: As above. Review of systems otherwise negative/unremarkable. Family history: Mother and maternal grandmother had CAD. Social history: She denies tobacco, alcohol, or drug abuse. She lives at home with her . No children. 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 She was unaccompanied. Allergies Allergy/AdvReac Type Severity Reaction Status Date / Time Benzodiazepines Allergy Mild psychological Verified 11/05/22 14:31 effects NSAIDS (Non-Steroidal Allergy Mild Rash Verified 11/05/22 14:31 Anti-Inflamma Sulfa (Sulfonamide Allergy Mild Rash Verified 11/05/22 14:31 Antibiotics) Home Medications Medication Instructions Recorded Confirmed Type ascorbic acid (vitamin C) 500 mg 500 mg PO DAILY #30 tabs 10/11/18 01/25/23 Rx tablet calcium-magnesium 300 mg-300 mg 1 tab PO DAILY 10/11/18 01/25/23 History tablet cholecalciferol (vitamin D3) 50 2,000 units PO DAILY #30 tabs 10/11/18 01/25/23 Rx mcg (2,000 unit) tablet multivitamin (Daily Multi-Vitamin 1 tab PO DAILY 10/11/18 01/25/23 History tablet) hydroxyzine HCl 25 mg tablet 25 mg PO HS PRN itching #90 tabs 10/16/22 01/25/23 Rx tramadol 50 mg tablet 50 mg PO DAILY PRN pain #30 tabs 01/24/23 01/25/23 Rx aspirin 81 mg tablet,delayed 81 mg PO QAM #30 tabs 01/25/23 Rx release fluticasone propionate 50 1 spray intranasal DAILY 01/25/23 01/25/23 History mcg/actuation nasal spray,suspension Patient History Medical History H/O Mohs micrographic surgery for skin cancer (~2015) Insomnia Low back pain chronic Mitral regurgitation Mitral valve prolapse Surgical History H/O sinus surgery "cranial incision for sinus infection" - 1972 also May 2020 Hx of colonoscopy Family History Sister Depression Mother Diabetes Hypertension Myocardial infarction Hearing loss Father Kidney disease Cancer Hearing loss Other No family history of allergies No family history of bleeding disorder Denies family history of Ovarian cancer Prostate cancer Heart disease Breast cancer Colorectal cancer Stroke Asthma Social History Smoking Status: Never smoker Second Hand Exposure: No; Do You Dip or Chew Tobacco: No; Hx Alcohol Use: No Hx Substance Use: No Preferred Language: Malagasy Communication Ability: Effective [employer] Required: No Beliefs That Will Affect Care: None marital status: Current Living Situation: Family current occupational status: employed current occupation: Acupuncture How many Children do You have: 0 Feels Safe at Home: Yes Safety Concerns: Feels Safe At This Time Childhood Exposure to Second-Hand Smoke: No Diet: regular caffeine: Yes Dental Care, Regularly: Yes Physical Activity Frequency: Daily Physical Activity Frequency Comment: Walking Seatbelt Use: always Sunscreen Use: No Assistive Devices: None Physical Exam Physical Exam: Gen.: No acute distress. Alert and oriented. HEENT: Anicteric sclera. Neck: No significant JVD. Perhaps mild hepatojugular reflux. Bilateral carotid bruit versus radiation of cardiac murmur. Normal carotid upstrokes bilaterally. Cardiac: No ventricular heave. Regular and tachycardic in the low 100s. Normal S1-S2. 3/6 systolic murmur heard throughout but most prominent at the apex and radiates to the axilla. Pulmonary: Bibasilar Rales. Abdomen: Soft, nontender, nondistended, with normoactive bowel sounds. No bruits noted. Extremities: 2+ radial pulses bilaterally. 2+ posterior tibialis pulses bilaterally. No edema or cyanosis. Psychiatric: Affect appears appropriate. Results & Data Vital Signs (Past 12 Hours) Vital Signs Temp Pulse Pulse Resp BP BP Pulse Ox 01/25/23 14:44 36.8 C 1 L 19 105/70 92 01/25/23 13:35 36.6 C 98 H 100 H 92/72 L 92 01/25/23 13:27 01/25/23 13:21 99 H 19 96/65 L 92 01/25/23 12:20 94 01/25/23 10:59 36.7 C 93 H 19 90/67 L 93 01/25/23 10:00 95 H 18 84/64 L 92 01/25/23 09:28 91 H 01/25/23 07:20 92 H 18 95/75 L 93 01/25/23 06:07 36.8 C 90 15 97/70 L 90 01/25/23 05:50 90 26 H 97/70 L 88 L 01/25/23 05:40 91 H 18 91 01/25/23 05:30 91 H 20 89 L 01/25/23 05:20 86 12 91 01/25/23 05:18 88 12 91 01/25/23 05:18 88 01/25/23 05:23 92 H 16 92 01/25/23 05:18 92 01/25/23 04:36 36.0 C L 109 H 18 94/62 L 92 O2 Del Method O2 Flow Rate 01/25/23 14:44 Nasal Cannula 2 01/25/23 13:35 Nasal Cannula 2 01/25/23 13:27 Nasal Cannula 2 01/25/23 13:21 Nasal Cannula 2 01/25/23 12:20 Nasal Cannula 01/25/23 10:59 Room Air 01/25/23 10:00 Nasal Cannula 2 01/25/23 09:28 01/25/23 07:20 01/25/23 06:07 Room Air 01/25/23 05:50 01/25/23 05:40 01/25/23 05:30 01/25/23 05:20 01/25/23 05:18 01/25/23 05:18 01/25/23 05:23 Room Air 01/25/23 05:18 Room Air 01/25/23 04:36 Room Air Laboratory Results Laboratory Results - last 24 hr 01/25/23 01/25/23 01/25/23 05:13 05:13 05:13 WBC 11.41 H RBC 4.79 Hgb 14.7 Hct 41.4 MCV 86.4 MCH 30.7 MCHC 35.5 RDW Std Deviation 39.8 RDW Coeff of [place] 12.6 Plt Count 233 MPV 8.7 L Immature Gran % (Auto) 0.3 Neut % (Auto) 78.1 Lymph % (Auto) 14.0 [place] % (Auto) 6.7 Eos % (Auto) 0.5 Baso % (Auto) 0.4 Neut # (Auto) 8.90 H Lymph # (Auto) 1.60 [place] # (Auto) 0.77 H Eos # (Auto) 0.06 Baso # (Auto) 0.05 Immature Gran # (Auto) 0.03 PT INR APTT PTT Ratio Sodium 135 L Potassium 4.2 Chloride 104 Carbon Dioxide 22 Anion Gap 9 BUN 30 H Creatinine 0.85 Est Cr Clr Drug Dosing 66.9 Est GFR ( Amer) 83.3 Est GFR (Non-Af Amer) 71.9 BUN/Creatinine Ratio 35.3 H Glucose 149 H Calcium 9.3 Magnesium Total Bilirubin 1.3 H AST 23 ALT 23 Alkaline Phosphatase 75 Troponin I High Sens 97.9 H* B-Natriuretic Peptide Total Protein 6.8 Albumin 4.2 Globulin 2.6 Albumin/Globulin Ratio 1.6 Procalcitonin TSH Free T4 Urine Color Urine Appearance Urine pH Ur Specific [place] Urine Protein Urine Glucose (UA) Urine Ketones Urine Blood Urine Nitrite Urine Bilirubin Urine Urobilinogen Ur Leukocyte Esterase Urine WBC (Auto) Urine RBC (Auto) U Hyaline Cast (Auto) U Epithel Cells (Auto) Urine Bacteria (Auto) Adenovirus (PCR) B. pertussis DNA (PCR) B.parapertussis DNA PCR C. pneumoniae DNA (PCR) Coronavirus OC43 (PCR) Coronavirus HKU1 (PCR) Coronavirus 229E (PCR) SARS-CoV-2 (PCR) NEGATIVE Coronavirus NL63 (PCR) Human Metapneumovir PCR Influenza Type A (PCR) Negative Influenza Type B (PCR) Negative M. pneumoniae (PCR) Parainfluenza 1 (PCR) Parainfluenza 2 (PCR) Parainfluenza 3 (PCR) Parainfluenza 4 (PCR) RSV (RT-PCR) Negative RSV (PCR) Entero/Rhino (PCR) 01/25/23 01/25/23 01/25/23 05:13 05:13 07:30 WBC RBC Hgb Hct MCV MCH MCHC RDW Std Deviation RDW Coeff of [place] Plt Count MPV Immature Gran % (Auto) Neut % (Auto) Lymph % (Auto) [place] % (Auto) Eos % (Auto) Baso % (Auto) Neut # (Auto) Lymph # (Auto) [place] # (Auto) Eos # (Auto) Baso # (Auto) Immature Gran # (Auto) PT 11.1 INR 1.0 APTT 26.4 PTT Ratio 0.9 Sodium Potassium Chloride Carbon Dioxide Anion Gap BUN Creatinine Est Cr Clr Drug Dosing Est GFR ( Amer) Est GFR (Non-Af Amer) BUN/Creatinine Ratio Glucose Calcium Magnesium Total Bilirubin AST ALT Alkaline Phosphatase Troponin I High Sens B-Natriuretic Peptide Total Protein Albumin Globulin Albumin/Globulin Ratio Procalcitonin < 0.05 TSH Free T4 Urine Color Yellow Urine Appearance Cloudy A Urine pH 6.0 Ur Specific [place] 1.017 Urine Protein Negative Urine Glucose (UA) Negative Urine Ketones Negative Urine Blood Negative Urine Nitrite Negative Urine Bilirubin Negative Urine Urobilinogen Negative Ur Leukocyte Esterase Negative Urine WBC (Auto) 1-5 Urine RBC (Auto) 0-4 U Hyaline Cast (Auto) 1-5 U Epithel Cells (Auto) 5-10 H Urine Bacteria (Auto) Negative Adenovirus (PCR) B. pertussis DNA (PCR) B.parapertussis DNA PCR C. pneumoniae DNA (PCR) Coronavirus OC43 (PCR) Coronavirus HKU1 (PCR) Coronavirus 229E (PCR) SARS-CoV-2 (PCR) Coronavirus NL63 (PCR) Human Metapneumovir PCR Influenza Type A (PCR) Influenza Type B (PCR) M. pneumoniae (PCR) Parainfluenza 1 (PCR) Parainfluenza 2 (PCR) Parainfluenza 3 (PCR) Parainfluenza 4 (PCR) RSV (RT-PCR) RSV (PCR) Entero/Rhino (PCR) 01/25/23 01/25/23 01/25/23 07:36 07:36 13:58 WBC RBC Hgb Hct MCV MCH MCHC RDW Std Deviation RDW Coeff of [place] Plt Count MPV Immature Gran % (Auto) Neut % (Auto) Lymph % (Auto) [place] % (Auto) Eos % (Auto) Baso % (Auto) Neut # (Auto) Lymph # (Auto) [place] # (Auto) Eos # (Auto) Baso # (Auto) Immature Gran # (Auto) PT INR APTT PTT Ratio Sodium Potassium Chloride Carbon Dioxide Anion Gap BUN Creatinine Est Cr Clr Drug Dosing Est GFR ( Amer) Est GFR (Non-Af Amer) BUN/Creatinine Ratio Glucose Calcium Magnesium 1.9 Total Bilirubin AST ALT Alkaline Phosphatase Troponin I High Sens 122.2 H* D 115.6 H* B-Natriuretic Peptide 733 H Total Protein Albumin Globulin Albumin/Globulin Ratio Procalcitonin TSH 4.626 H Free T4 1.02 Urine Color Urine Appearance Urine pH Ur Specific [place] Urine Protein Urine Glucose (UA) Urine Ketones Urine Blood Urine Nitrite Urine Bilirubin Urine Urobilinogen Ur Leukocyte Esterase Urine WBC (Auto) Urine RBC (Auto) U Hyaline Cast (Auto) U Epithel Cells (Auto) Urine Bacteria (Auto) Adenovirus (PCR) B. pertussis DNA (PCR) B.parapertussis DNA PCR C. pneumoniae DNA (PCR) Coronavirus OC43 (PCR) Coronavirus HKU1 (PCR) Coronavirus 229E (PCR) SARS-CoV-2 (PCR) Coronavirus NL63 (PCR) Human Metapneumovir PCR Influenza Type A (PCR) Influenza Type B (PCR) M. pneumoniae (PCR) Parainfluenza 1 (PCR) Parainfluenza 2 (PCR) Parainfluenza 3 (PCR) Parainfluenza 4 (PCR) RSV (RT-PCR) RSV (PCR) Entero/Rhino (PCR) 01/25/23 Unknown WBC RBC Hgb Hct MCV MCH MCHC RDW Std Deviation RDW Coeff of [place] Plt Count MPV Immature Gran % (Auto) Neut % (Auto) Lymph % (Auto) [place] % (Auto) Eos % (Auto) Baso % (Auto) Neut # (Auto) Lymph # (Auto) [place] # (Auto) Eos # (Auto) Baso # (Auto) Immature Gran # (Auto) PT INR APTT PTT Ratio Sodium Potassium Chloride Carbon Dioxide Anion Gap BUN Creatinine Est Cr Clr Drug Dosing Est GFR ( Amer) Est GFR (Non-Af Amer) BUN/Creatinine Ratio Glucose Calcium Magnesium Total Bilirubin AST ALT Alkaline Phosphatase Troponin I High Sens B-Natriuretic Peptide Total Protein Albumin Globulin Albumin/Globulin Ratio Procalcitonin TSH Free T4 Urine Color Urine Appearance Urine pH Ur Specific [place] Urine Protein Urine Glucose (UA) Urine Ketones Urine Blood Urine Nitrite Urine Bilirubin Urine Urobilinogen Ur Leukocyte Esterase Urine WBC (Auto) Urine RBC (Auto) U Hyaline Cast (Auto) U Epithel Cells (Auto) Urine Bacteria (Auto) Adenovirus (PCR) Not Detected B. pertussis DNA (PCR) Not Detected B.parapertussis DNA PCR Not Detected C. pneumoniae DNA (PCR) Not Detected Coronavirus OC43 (PCR) Not Detected Coronavirus HKU1 (PCR) Not Detected Coronavirus 229E (PCR) Not Detected SARS-CoV-2 (PCR) Not Detected Coronavirus NL63 (PCR) Not Detected Human Metapneumovir PCR Not Detected Influenza Type A (PCR) Not Detected Influenza Type B (PCR) Not Detected M. pneumoniae (PCR) Not Detected Parainfluenza 1 (PCR) Not Detected Parainfluenza 2 (PCR) Not Detected Parainfluenza 3 (PCR) Not Detected Parainfluenza 4 (PCR) Not Detected RSV (RT-PCR) RSV (PCR) Not Detected Entero/Rhino (PCR) Not Detected Diagnostic Findings Telemetry: Personally reviewed and noted to be in sinus tachycardia ECG personally reviewed 01/25/2023 at 4:47 AM: Sinus [address] abnormality. Preliminary echo 01/25/2023: Preliminary findings noted as normal LV systolic function. Myxomatous mitral valve with bileaflet prolapse. Findings consistent with severe mitral regurgitation. Concern for partially flail posterior leaflet significant tricuspid regurgitation. Aortic valve leaflets appear to open well however spectral Doppler difficult to evaluate given overlap with MR. technology risk intern to repeat spectral Doppler of the aortic valve. Severe pulmonary hypertension with RVSP > 60 mmHg. Labs reviewed and notable for mildly elevated high-sensitivity troponin, azotemia with BUN of 30 compared to a baseline of 19, normal transaminase levels, normal TSH, slight leukocytosis, normal hemoglobin, elevated BNP. History and physical report reviewed. CTA chest 01/25/2023: No PE. Progression of interstitial and alveolar pulmonary edema since chest x-ray earlier today. Small bilateral pleural effusions. Medications Administered Current Inpatient Medications Acetaminophen (Acetaminophen 325 Mg Tab) 650 mg PO Q4H PRN PRN Reason: Mild Pain or Fever Stop: 02/24/23 11:48 Ascorbic Acid (Ascorbic Acid 500 Mg Tab) 500 mg PO DAILY [facility] Stop: 02/25/23 08:59 Aspirin (Aspirin 81 Mg Ectab) 81 mg PO QAM MARYJANE Stop: 02/25/23 08:59 Fluticasone Propionate (Fluticasone Propionate Na Spr 16 Gm Btl) 1 sprays NA DAILY MARYJANE Stop: 02/25/23 08:59 Hydroxyzine HCl (Hydroxyzine Hcl 25 Mg Tab) 25 mg PO HS PRN PRN Reason: itching Stop: 02/24/23 11:48 Morphine Sulfate (Morphine Sulfate 2 Mg/Ml Carp) 2 mg IV Q30M PRN PRN Reason: Chest Pain Stop: 02/08/23 11:48 Multivitamins (Multivitamin Tab) 1 tab PO DAILY MARYJANE Stop: 02/25/23 08:59 Nitroglycerin (Nitroglycerin Sl 0.4 Mg/Tab Tab) 0.4 mg SL Q5M PRN PRN Reason: Chest Pain Stop: 02/24/23 11:48 Ondansetron HCl (Ondansetron Inj 2 Mg/Ml 2 Ml Vial) 4 mg IV Q6H PRN PRN Reason: Nausea Stop: 02/24/23 11:48 Polyethylene Glycol (Polyethylene (Miralax) 17 Gm Pack) 17 gm PO DAILY PRN PRN Reason: Constipation Stop: 02/24/23 11:48 Tramadol HCl (Tramadol Hcl 50 Mg Tablet) 50 mg PO DAILY PRN PRN Reason: Moderate-severe pain Stop: 02/24/23 11:48 Vitamin D (Cholecalciferol 1,000 Units 25 Mcg Tab) 2,000 units PO DAILY MARYJANE Stop: 02/25/23 08:59 PG Care Time/CCT Total # of Minutes Spent Total Time Spent with Patient: Total time spent is greater than 50% in coordination of care (as documented) at patient's floor/unit and/or counseling patient: Critical Care Time: Yes Total Critical Care Time: 55 Coding Level of Care Code 41076 CRITICAL CARE 1ST 30-74M Diagnoses Acute mitral regurgitation I34.0 Chest pain R07.9 Mitral valve prolapse I34.1 Pulmonary hypertension I27.20 Tricuspid regurgitation I07.1 Hypoxia R09.02 Additional Codes Critical Care Time - Critical Care Time: Yes ([id number])
[2023-01-25] MEDS ORDERED: FUROSEMIDE INJ 20 MG/2 ML VIAL IV SCH (17:00)
--- NOTE | 2023-01-25 19:33 | XCELERA ---
[id number]
--- NOTE | 2023-01-25 21:52 | Electrocardiogram Report ---
Test Reason : Blood Pressure : / mmHG Vent. Rate : 096 BPM Atrial Rate : 096 BPM P-R Int : 174 ms QRS Dur : 092 ms QT Int : 358 ms P-R-T Axes : 045 -02 013 degrees QTc Int : 452 ms Normal sinus rhythm Possible Left atrial enlargement Nonspecific ST and T wave abnormality Abnormal ECG When compared with ECG of 03-OCT-2020 11:00, Nonspecific T wave abnormality now evident in Inferior leads Confirmed by Ousmane William ([id number]) on 01/25/2023 9:52:29 PM Referred By: Confirmed By:Ousmane William
[2023-01-26] MEDS ORDERED: CHOLECALCIFEROL 1,000 UNITS 25 MCG TAB PO SCH (09:00)
[2023-01-26] MEDS ORDERED: ASPIRIN 81 MG ECTAB PO SCH (09:00)
[2023-01-26] MEDS ORDERED: CALCIUM PO SCH (09:00)
[2023-01-26] MEDS ORDERED: FLUTICASONE PROPIONATE NA SPR 16 GM BTL SCH (09:00)
[2023-01-26] MEDS ORDERED: ASCORBIC ACID 500 MG TAB PO SCH (09:00)
[2023-01-26] MEDS ORDERED: MULTIVITAMIN TAB PO SCH (09:00)
[2023-01-26] MEDS ORDERED: MAGNESIUM PO SCH (09:00)
--- NOTE | 2023-01-29 09:30 | Coding Query ---
CONGESTIVE HEART FAILURE To Promote full compliance with coding requirements relating to patient care, physician participation is requested in all cases of inspector repairer uncertainty. Please assist us with the following questions. A diagnosis of Congestive Heart Failure is documented in the patient's medical record. To accurately code this diagnosis and to compare patient severity, we ask that you specify the type of heart failure by placing an X within the parenthesis (x). SYSTOLIC HEART FAILURE ( ) Acute ( ) Chronic ( ) Acute on Chronic ( ) Rheumatic ( ) Unknown DIASTOLIC HEART FAILURE ( x ) Acute ( ) Chronic ( ) Acute on Chronic ( ) Rheumatic ( ) Unknown COMBINED SYSTOLIC AND DIASTOLIC HEART FAILURE ( ) Acute ( ) Chronic ( ) Acute on Chronic ( ) Rheumatic ( ) Unknown Was the CHF Present On Admission? Please check the appropriate box: ( x ) Present on Admission ( ) Not Present On Admission ( ) Clinically undetermined Thank you Mindy LEIJA
== END 2023-01-25 19:40 | disposition short-term general hospital (02) ==
LOC: ED 04:32 → EDINP 09:14 → INTOOBSV 09:14 → EDINP 11:40